=== PATIENT | male | born 1970 | race African-American/Black ===

== ENCOUNTER 2020-10-17 17:02 | Emergency (ER) | payer OTHER ==
[~2020-10-17] VITALS: Ht 167.6 cm; Wt 124.7 kg
[2020-10-17 17:05] VITALS: BP 168/95
[2020-10-17 20:47] LABS: ANION GAP 15.3 (8-16); CARBON DIOXIDE 26.7 mmol/L (21-32)
[2020-10-17 20:49] LABS: CREATININE 4.8 mg/dL (0.6-1.3)
== END 2020-10-17 21:56 | disposition home or self-care (01) ==
LOC: MED 17:02
DX: N28.9 Disorder of kidney and ureter, unspecified (principal); E11.9 Type 2 diabetes mellitus without complications; R53.1 Weakness; F20.9 Schizophrenia, unspecified
CPT/HCPCS: 36415; 80048; 93005; 99284